=== PATIENT | male | born 1955 | race Caucasian/White ===

== ENCOUNTER 2017-08-14 16:33 | Emergency (ER) | payer OTHER ==
[~2017-08-14] VITALS: Ht 165.1 cm; Wt 54.4 kg
[~2017-08-14 16:33] MED LIST: GLU500 PO; GLYB5TAB9 PO
[2017-08-14 16:40] VITALS: BP 107/75
--- NOTE | 2017-08-14 16:45 | NUR ---
PT TO LOBBY; VSS
--- NOTE | 2017-08-14 16:46 | NUR ---
PT GIVEN URINE CUP
--- NOTE | 2017-08-14 17:08 | NUR ---
PATIENT AMBULATED TO ER BED 2
--- NOTE | 2017-08-14 17:25 | NUR ---
PT. CAME TO ED W/ C/O ABD PAIN X 2 WEEKS. PT. STATES " I HAVE BEEN HAVING ABD PAIN FOR 2 WEEKS IN THE RIGHT UPPER SIDE OF MY STOMACH, I GET NAUSEAS, NO VOMITING, AND IT HURTS REALLY BAD". PT. HAS 8/10 PAIN IN HER R UPPER QUADRANT PAIN THAT IS NON RADIATING AND DESCRIBED SHARP AND STABBING PAIN. PT. SAYS HE DOES HAVE NAUSEA BUT HAS NOT VOMITED, DENIES ANY DIAHRRHEA. PT.STATES HE HAS NOT HAD A BM IN 5 DAYS, ASSESSED BOWEL SOUNDS ACTIVE X 4 QUADRANTS, NO REBOUND TENDERNESS NOTED. PT. AAOX4, DENIES SOB, DENIES CHEST PAIN, DAUGHTER AT BEDSIDE. DR. MAST NOTIFIED. WILL CONTIUE TO MONITOR.
--- NOTE | 2017-08-14 18:30 | NUR ---
PT. RESTING IN BED , RR EVEN AND UNLABORED, DAUGHTERS AT BEDSIDE WILL CONTINUE TO MONITOR.
[2017-08-14] MEDS ORDERED: MORPHINE SULFATE 4 MG/ML SYR IVP ONE (18:45)
[2017-08-14] MEDS ORDERED: FAMOTIDINE 20 MG/2 ML VIAL IVP ONE (18:45)
[2017-08-14] MEDS ORDERED: KETOROLAC 30 MG/ML VIAL IVP ONE (18:45)
[2017-08-14] MEDS ORDERED: NACL 0.9% 1,000 ML IV SCH (18:45)
[2017-08-14] MEDS ORDERED: ONDANSETRON 4 MG/2 ML VIAL IVP ONE (18:45)
--- NOTE | 2017-08-14 19:15 | NUR ---
Pt report given to SIRISHA WARREN . Transfer of care at this time.
[2017-08-14 19:17] LABS: BASOPHILS # (AUTO) 0.3 K/uL (0.00-0.22); BASOPHILS % (AUTO) 1.7 % (0.0-2.0); EOSINOPHILS # (AUTO) 0.1 K/uL (0-0.4); HEMATOCRIT 42.7 % (36-52); HEMOGLOBIN 14.4 g/dL (12.0-18.0); LYMPHOCYTES # (AUTO) 1.1 K/uL (2.0-11.5); LYMPHOCYTES % (AUTO) 7.4 % (20.5-51.1); MEAN CORPUSCULAR HEMOGLOBIN 30 pg (27-31); MEAN CORPUSCULAR HGB CONC 34 g/dL (33-37); MEAN CORPUSCULAR VOLUME 87.8 fL (80-94); MONOCYTES # (AUTO) 0.8 K/uL (0.8-1.0); MONOCYTES % (AUTO) 5.4 % (1.7-9.3); NEUTROPHILS # (AUTO) 12.5 K/uL (1.8-7.7); NEUTROPHILS % (AUTO) 84.5 % (42.2-75.2); PLATELET COUNT (AUTO) 328 K/uL (140-450); RED BLOOD CELL COUNT(AUTO) 4.86 MIL/uL (4.20-6.10); RED CELL DISTRIBUTION WIDTH 13.2 % (11.6-13.7); WHITE BLOOD COUNT (AUTO) 14.8 K/uL (4.8-10.8)
[2017-08-14 19:18] LABS: APPEARANCE,URINE CLEAR (CLEAR); BILIRUBIN,URINE NEGATIVE (NEGATIVE); BLOOD, URINE TRACE-I (NEGATIVE); LEUKOCYTE ESTERASE ,URINE NEGATIVE (NEGATIVE); NITRITE, URINE NEGATIVE (NEGATIVE); UGLUCOSE 3+ (NEGATIVE)
[2017-08-14 19:23] LABS: COLOR,URINE STRAW (YELLOW)
--- NOTE | 2017-08-14 19:25 | NUR ---
PT A&OX4. DAUGHTER AT BED SIDE. PT IVF RUNNING AT THIS TIME. PT STATED THAT HIS PAIN IS RELEIVED. RR EVEN AND UNLABORED. VSS AND NO ACUTE DISTRESS NOTED. WILL CONTINUE TO MONITOR.
[2017-08-14 19:31] LABS: RBC,URINE 3-10 (FEW) /HPF (0-5); WBC,URINE NONE SEEN /HPF (0-5)
[2017-08-14 19:33] LABS: ANION GAP 12.6 (8-16); CARBON DIOXIDE 28.9 mmol/L (21-32); CREATININE 1.3 mg/dL (0.7-1.3); POTASSIUM 4.5 mmol/L (3.5-5.1); TOTAL BILIRUBIN 0.4 mg/dL (0.0-1.0)
[2017-08-14] MEDS ORDERED: NACL 0.9% 1,000 ML IV ONE (19:40)
--- NOTE | 2017-08-14 20:02 | NUR ---
PT TAKEN TO CT SCAN VIA WC WITH STABLE CONDITION. VERIFIED SIGNED CONSENT.
--- NOTE | 2017-08-14 20:18 | NUR ---
PT CAME BACK FROM CT SCAN VIA WC. PT TRANSFERED TO BED WITHOUT DIFFICULTY. VSS AND WILL CONTINUE TO MONITOR.
--- NOTE | 2017-08-14 21:30 | NUR ---
PT RESTING IN BED. DENIES PAIN OR DISCOMFORT. NO ACUTE DISTRESS NOTED. WILL COTINUE TO MONITOR.
[2017-08-14] MEDS ORDERED: DICYCLOMINE HCL LIQUID 20 MG, ALUMINUM HYD/MAG/SIMETHICONE 30 ML, LIDOCAINE VISCOUS 2% ... PO ONE ×3 (21:55)
[2017-08-14 22:32] VITALS: BP 145/92
--- NOTE | 2017-08-14 22:32 | NUR ---
IV removed, catheter intact and site benign. Applied folded 4x4 gauze and tape to stop bleeding. Patient discharged with DAUGHTERS v/s stable. Written and verbal after care instructions given and explained. Patient alert, oriented and verbalized understanding of instructions. Ambulatory with steady gait. All questions addressed prior to discharge. ID band removed. Patient advised to follow up with PMD. Rx of MYLANTA, CARAFATE, OMEPRAZOLE, TYLENOL given. Patient educated on indication of medication including possible reaction and side effects. Opportunity to ask questions provided and answered.
== END 2017-08-14 22:32 | disposition home or self-care (01) ==
LOC: MED 16:33
DX: R10.11 Right upper quadrant pain (principal); R11.2 Nausea with vomiting, unspecified; R63.0 Anorexia; E11.9 Type 2 diabetes mellitus without complications; Z79.84 Long term (current) use of oral hypoglycemic drugs
CPT/HCPCS: 36415; 74177; 80053; 81001; 82150; 82948; 83690; 84484; 85025; 93005; 96361; 96374; 96375; 99285; J1885; J2270; J2405; J3490; J7030; Q9967